=== PATIENT | male | born 1940 | race Caucasian/White ===

== ENCOUNTER → 2019-05-27 13:10 | Outpatient (CLI) | payer MEDICARE, SELFPAY ==
--- NOTE | ~2019-05-27 | XR_ITS ---
EXAMINATION: XR humerus LT DATE: 05/27/2019 13:33 INDICATION: Mid left humeral pain post fall TECHNIQUE: Internal and externally rotated views of the left humerus were obtained. COMPARISON: None. FINDINGS: Alignment is normal. No fracture. Joint space at the left glenohumeral and elbow joints appears william l. Mild left acromioclavicular osteoarthritis. Soft tissues are unremarkable. IMPRESSION: 1. No acute osseous abnormality. Reviewed, dictated and finalized at location A. LOSS PREVENTION MANAGER
== END ==
PROVIDERS: PCP Family Medicine; Visit Provider Family Medicine
DX: M79.622 Pain in left upper arm (principal)
CPT/HCPCS: 73060

== ENCOUNTER 2019-07-23 13:39 | Outpatient (CLI) | payer MEDICARE, SELFPAY ==
--- NOTE | ~2019-07-23 | US_ITS ---
EXAMINATION: US retroperitoneal comp DATE: 07/23/2019 14:28 INDICATION: Chronic kidney disease TECHNIQUE: Multiple grayscale and Doppler ultrasound images of the kidneys were obtained. COMPARISON: CT, 08/13/2012 FINDINGS: The right kidney measures 8.8 x 3.7 x 5.4 cm and contains multiple cysts measuring up to 2. 7 cm. The left kidney measures 10.4 x 5.6 x 4.1 cm. The kidneys demonstrate increased parenchymal ech ogenicity. Bilateral cortical thinning is noted in the kidneys. There is no hydronephrosis. The [facility] is normal. IMPRESSION: 1. Medical renal disease. Reviewed, dictated and finalized at location A. IMPRESSION: 1. Medical renal disease.
== END 2019-07-23 13:40 | disposition home or self-care (01) ==
PROVIDERS: PCP Family Medicine; Visit Provider Internal Medicine Nephrology
DX: N18.3 Chronic kidney disease, stage 3 (moderate) (principal)
CPT/HCPCS: 76770